=== PATIENT | male | born 1950 | race Two or more races ===

== ENCOUNTER 2022-05-18 21:02 | Inpatient (IN) | payer OTHER ==
[~2022-05-18] VITALS: Ht 175.3 cm; Wt 92.1 kg
[2022-05-18] MEDS ORDERED: LIPOFEN150 MG (21:14)
[2022-05-18] MEDS ORDERED: GLUMETZA500 MG PO (21:14)
[2022-05-18] MEDS ORDERED: TRULICITY0.75 MG/0. SQ (21:15)
[2022-05-18] MEDS ORDERED: EZALLOR SPRINKL40 MG PO (21:15)
[2022-05-18] MEDS ORDERED: MAXIMIN PACK1 EACH PO (21:15)
[2022-05-18] MEDS ORDERED: GLIMEPIRIDE4 MG (21:15)
--- NOTE | 2022-05-18 21:30 | NUR ---
SE RECIBE MASCULINO ALERTA Y ORIENTADO EN PERSONA Y LUGAR. FAMILIAR REFIERE QUE TIERA PTE DESORIENTADO EN LA TARDE DE HOY Y QUE LO MATOS ESTADO MONITOREANDO POR S/S/ DE ALZHEIMER. SE MIDEN S/V Y TEMP 101.4F. DTT 312 MG/DL. SE UBICA EN CAILLA #8 CON BARANDAS ELEVADAS Y SE NOTIFICA A DR. TRINIDAD. PENDIENTE A EVALUACION MEDICA.
--- NOTE | 2022-05-18 22:29 | NUR ---
PTE ALERTA,ESTABLE Y ORIENTADO.MELOYD SE EDUCA SOBRE EL TRATAMIENTO QUE RECIBRIA EN EL HOSPITAL Y MELODY REFIERE ENTENDER.SE EL TAVIA MUESTRAS DE [place] Y SE LE ADMINISTRA 0.9NSS,POR ORDEN MEDICA.SE MANTIENE EN LA ESPERA DE REALIZAR CT DE [place]
[2022-05-19] MEDS ORDERED: FENOFIBRATE145 MG (16:08)
== END 2022-05-25 18:53 | disposition home or self-care (01) | DRG 56 ==
LOC: ER 21:02 → MEDI 05-19 13:43 → MEDJ 05-22 15:37
PROVIDERS: ADMIT Internal Medicine; ATTEND Internal Medicine
PROC: B24BYZZ Ultrasonography of Heart with Aorta using Other Contrast (ICD-10-PCS; principal; 2022-05-19)
DX: G31.9 Degenerative disease of nervous system, unspecified (principal); U07.1 COVID-19; G45.9 Transient cerebral ischemic attack, unspecified; G93.49 Other encephalopathy; G45.4 Transient global amnesia; R41.82 Altered mental status, unspecified; E78.00 Pure hypercholesterolemia, unspecified; E11.9 Type 2 diabetes mellitus without complications; Z79.84 Long term (current) use of oral hypoglycemic drugs
CPT/HCPCS: 70545